=== PATIENT | male | born 1940 | race Caucasian/White ===

== ENCOUNTER 2017-08-04 11:10 | Outpatient (CLI) | payer OTHER | END 2017-08-04 11:11 | disposition critical access hospital (66) | LOC: EMS 11:10 | PROVIDERS: ATTEND Surgery | DX: S09.90XA Unspecified injury of head, initial encounter (principal); S61.422A Laceration with foreign body of left hand, initial encounter; V54.5XXA Driver of pick-up truck or van injured in collision with heavy transport vehicle or bus in traffic accident, initial encounter; Y92.413 State road as the place of occurrence of the external cause | CPT/HCPCS: A0425; A0429 ==

== ENCOUNTER 2017-08-04 11:30 | Emergency (ER) | payer OTHER ==
[2017-08-04] MEDS ORDERED: TETANUS/DIPHTHERIA/PERTUSSIS 0.5 ML SYRINGE IM ONE ×2 (11:50→12:35)
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
--- NOTE | 2017-08-04 12:46 | XRAY Preliminary Report ---
Exam: XR Hand 3 View LT IMPRESSION: Left hand soft tissue lacerations at the dorsal aspect of the hand and ulnar aspect of th e index finger. Tiny 1 mm radiopaque retained foreign bodies in these areas. Severe soft tissue swell ing. No fracture. [facility] SITE ID: [id number]
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
[2017-08-04] MEDS ORDERED: LIDOCAINE 1%-EPI 1:100000 20 ML MDV SUBQ ONE (12:55)
[2017-08-04] MEDS ORDERED: LIDOCAINE MPF 1%-EPI 1:200000 30 ML VIAL ONE (13:01)
[2017-08-04] MEDS ORDERED: CEPHALEXIN 250 MG CAPSULE PO STA (14:05)
[2017-08-04] MEDS ORDERED: ACETAMINOPHEN 325 MG TABLET PO STA (14:05)
[2017-08-04 14:13] VITALS: BP 158/88
[2017-08-04] MEDS ORDERED: CEPHALEXIN 250 MG CAPSULE PO ONE (14:20)
[2017-08-04] MEDS ORDERED: ACETAMINOPHEN 325 MG TABLET PO ONE (14:20)
== END 2017-08-04 14:29 | disposition home or self-care (01) ==
LOC: ED 11:30
DX: S61.412A Laceration without foreign body of left hand, initial encounter (principal); S61.211A Laceration without foreign body of left index finger without damage to nail, initial encounter; S00.01XA Abrasion of scalp, initial encounter; V54.5XXA Driver of pick-up truck or van injured in collision with heavy transport vehicle or bus in traffic accident, initial encounter; Z23 Encounter for immunization; Z79.82 Long term (current) use of aspirin
CPT/HCPCS: 12034; 73130; 90471; 90715; 99283; A9270